=== PATIENT | male | born 1955 | race Caucasian/White ===

== ENCOUNTER 2021-10-03 15:40 | Emergency (ER) | payer OTHER ==
[2021-10-03 16:41] LABS: BASOPHIL 0.5 % (0-2); EOSINOPHIL 1.5 % (0-7); HCT 42.6 % (42.0-52.0); HGB 14.6 g/dl (13.2-18.0); LYMPHOCYTE 7.7 % (15-48); MCH 32.4 pg (25.0-31.0); MCHC 34.3 g/dL (32.0-36.0); MCV 94.7 fL (78.0-100.0); NRBC 0; PLT 248 K/uL (150-400); RDW 11.9 % (11.5-14.0); WBC 13.9 K/uL (4.0-10.5)
[2021-10-03 16:45] LABS: INR 1.06 (0.9-1.2); PROTHROMBIN TIME 13.2 SECONDS (11.8-13.4); PTT 24.9 SECONDS (24.4-34.7)
[2021-10-03 16:58] LABS: ALBUMIN 3.6 g/dL (3.4-5.0); BILIRUBIN - TOTAL 0.3 mg/dL (0.2-1.0); GLOBULIN (CALCULATION) 3.8 g/dL; POTASSIUM 3.8 mmol/L (3.5-5.1); TOTAL PROTEIN 7.4 g/dL (6.4-8.2)
[2021-10-03] MEDS ORDERED: NITROQUIK SL0.4 MG SL ×2 (21:48→21:54)
== END 2021-10-03 22:21 | disposition home or self-care (01) ==
LOC: FER 15:40
PROVIDERS: Emergency Medicine
DX: R07.89 Other chest pain (principal); I10 Essential (primary) hypertension; E11.9 Type 2 diabetes mellitus without complications; Z79.84 Long term (current) use of oral hypoglycemic drugs
CPT/HCPCS: 36415; 71045; 80053; 84484; 85025; 85610; 85730; 93005